=== PATIENT | male | born 1950 | race Caucasian/White ===

== ENCOUNTER 2018-12-07 22:37 | Inpatient (IN) | payer OTHER ==
[~2018-12-07] VITALS: Ht 172.7 cm; Wt 95.5 kg
--- NOTE | ~2018-12-07 | HC ---
[facility] [place] [address] CONSULTATION Name: PENNIE GRANT Room #: 216-P [facility] IN M.R.#: [id number] Admission: 12/08/18 ������������������ Attend Phys: Matt Walker MD Discharge: ������������������ Date of : 48 Report #: [id number] THIS REPORT FOR: //name// CC: Matt Wilkins DATE OF SERVICE: 12/08/2018 HISTORY OF PRESENT ILLNESS: This is a 68-year-old male patient who was discussed with the Emergency Room physician last night and I discussed the patient with the nurses this morning. This patient does not provide any reliable history. Nobody is here with the patient to give any appropriate history. This patient had a stroke in the past with right-sided weakness as well as speech difficulty. He became worst. It is not clear how much different he is from the baseline, but apparently he was worse. This patient is on Xarelto that is for his atrial fibrillation. He was hypertensive at one time. His rhythm has stabilized, but he had increased heart rate at one time. REVIEW OF SYSTEMS: Positive for prior stroke that did leave him with residual deficit on the right side as well as partial aphasia. Review of systems is also positive for atrial fibrillation and he is on chronic anticoagulation for his atrial fibrillation. That was all the 14-point review of system which I could get. PAST MEDICAL HISTORY: Positive for stroke. FAMILY HISTORY: Negative for early age stroke. SOCIAL HISTORY: Unavailable. PHYSICAL EXAMINATION: NEUROLOGIC: His examination is pretty limited. He is alert. He wakes up, but his speech is difficult to understand. That makes it very difficult to do further neurological examination on him. He is weak on the right side, but apparently that is old. I cannot carry out any sensory examination because this patient has aphasia and is not able to understand the instructions very well. There is no meningeal sign. I could not look at the fundus. He has a history of atrial fibrillation. He does not appear to be in any respiratory distress. VITAL SIGNS: Last blood pressure was 107/47 and temperature was 99.3. LABORATORY DATA: His white count is 12.7. His sodium is normal. His CT angiogram and CT were reviewed and that does not show any abnormality. IMPRESSION: The patient with prior cerebrovascular accident with residual weakness on the right side and aphasia, now presents with aggravation of his symptoms. He is hypotensive. That can aggravate the deficit or the patient may [facility] [address] [place] [address] CONSULTATION Name: PENNIE GRANT Room #: 216-P [facility] IN .R.#: [id number] Admission: 12/08/18 ������������������ Attend Phys: Matt Walker MD Discharge: ������������������ Date of : 48 Report #: [id number] have extended his stroke. Multiple things were considered in this patient. He is not a TPA candidate because he was on Xarelto. The last time he was seen well was 09:30 yesterday and he was also outside the window for that. He was considered for thrombectomy and we did a CT angiogram and no thrombus was found. Therefore, this patient is not a candidate for any intervention. I discussed that with the patient, but I am not sure how much he understands. We will try to locate the family. I talked to the nurses and told them to take him down for MRI whenever they can and whenever Cardiology and staff feels comfortable. We will see if we need to change anything, but in the meantime, the emphasis should be to increase the patient's blood pressure if we can. Time spent 50 minutes, majority counseling and coordinating. We will see the patient again after the MRI is done. ��������������������������������������������� ���������������������������������������� By: ��������������������������������������������� 1259 0035 Levi Winn MD /nt
[2018-12-07 22:40] VITALS: BP 128/71
[2018-12-07] MEDS ORDERED: ASPIR 8181 MG PO (22:42)
[2018-12-07] MEDS ORDERED: CARVEDILOL12.5 MG PO (22:43)
[2018-12-07] MEDS ORDERED: CALCIUM 600 +1 EAC1 PO (22:43)
[2018-12-07] MEDS ORDERED: CENTRUM SILVER1 EAC4 PO (22:43)
[2018-12-07] MEDS ORDERED: FLONASE 0.05%50 MCG NASAL (22:45)
[2018-12-07] MEDS ORDERED: NORCO 5-325 TA1 EACH PO (22:45)
[2018-12-07] MEDS ORDERED: LASIX 20 MG TAB20 MG PO (22:45)
[2018-12-07] MEDS ORDERED: FISH OIL 1,2001 EAC4 PO (22:45)
[2018-12-07] MEDS ORDERED: LISINOPRIL10 MG PO (22:46)
[2018-12-07] MEDS ORDERED: MYCOLOG TOP (22:46)
[2018-12-07] MEDS ORDERED: XARELTO20 MG PO (22:47)
[2018-12-07 22:59] LABS: POC CA IONIZED 3.6 mg/dL (4.5-5.3); POC HEMOGLOBIN 14.6 g/dL (14.0-18.0); POC POTASSIUM 5.2 mmol/L (3.5-5.1)
[2018-12-07 23:21] LABS: HEMATOCRIT 47.7 % (42.0-52.0); HEMOGLOBIN 16.3 gm/dL (14.0-18.0); MCH 32.3 pg (26.0-34.0); MCHC 34.2 g/dL (28.0-37.0); MCV 94.5 fL (80.0-100.0); PLATELET COUNT 146 thou/uL (150-400); RBC 5.04 mil/uL (4.50-6.00); RDW 14.4 % (10.5-14.5); WBC 13.9 thou/uL (4.0-11.0)
[2018-12-07 23:28] LABS: ANION GAP 12 mmol/L (7-16); BUN 22 mg/dL (7-18); CHLORIDE 101 mmol/L (98-107); CO2 25 mmol/L (21-32); CREATININE 1.5 mg/dL (0.7-1.3); GLUCOSE 281 mg/dL (74-106); SODIUM 138 mmol/L (136-145)
[2018-12-07 23:34] LABS: APTT 27.8 Seconds (24.5-32.8); INR 1.2; PROTIME 12.4 Seconds (9.3-11.4)
[2018-12-07 23:38] LABS: TROPONIN-I <0.06 ng/mL (<0.06)
[2018-12-07 23:55] LABS: ABSOLUTE NEUTROPHILS 12.1 thou/uL (1.4-8.2)
[2018-12-07 23:56] LABS: LARGE PLATELETS FEW; PLATELET ESTIMATE DECREASED; POLYCHROMASIA 1+
[2018-12-08] VITALS (28 sets, daily range): BP systolic 79–118; BP diastolic 22–71
[2018-12-08 00:05] LABS: URINE BILIRUBIN 1+ (Negative); URINE BLOOD 3+ (Negative); URINE CLARITY CLOUDY; URINE COLOR YELLOW; URINE GLUCOSE-RANDOM* 1+ (Negative); URINE KETONES TRACE (Negative); URINE LEUKOCYTES-REFLEX NEGATIVE (Negative); URINE NITRITE-REFLEX NEGATIVE (Negative); URINE PROTEIN (DIPSTICK) 1+ (Negative)
[2018-12-08 00:10] LABS: AMP/METHAMP Negative (Negative); BARBITURATES Negative (Negative); BENZODIAZEPINES Negative (Negative); COCAINE Negative (Negative); METHADONE Negative (Negative); OPIATES Negative (Negative); PCP Negative (Negative)
[2018-12-08 00:15] LABS: SQUAMOUS 0-3 Few /LPF (0-3); URINE RBC >20 Many /HPF (0-2); URINE WBC-REFLEX 0-5 Rare /HPF (0-5)
[2018-12-08 00:16] LABS: BACTERIA-REFLEX None Seen /HPF (None Seen); CASTS None Seen /LPF (None Seen); CRYSTALS None Seen /LPF (None Seen)
[2018-12-08 05:23] LABS: HEMATOCRIT 44.9 % (42.0-52.0); MCH 31.6 pg (26.0-34.0); MCHC 33.4 g/dL (28.0-37.0); MCV 94.7 fL (80.0-100.0); RBC 4.74 mil/uL (4.50-6.00); RDW 14.5 % (10.5-14.5); WBC 12.7 thou/uL (4.0-11.0)
[2018-12-08 05:28] LABS: CALCIUM 8.2 mg/dL (8.5-10.1); CREATININE 1.3 mg/dL (0.7-1.3); POTASSIUM 4.2 mmol/L (3.5-5.1)
--- NOTE | 2018-12-08 08:33 | NUR ---
RECIEVED PT FROM ER TO ICU 247. PT NIH 8. PREVIOUS RT SIDED WEAKNESS SISSY RT ARM.MOSTLY SLURRED SPEEACH, AND DECREASE RT ARM MOVMNT NOTED FOR RT ARM WEAKNESS. MONITOR SHOW AFIB 100-90. WILL DECREASE CARDIZEM RATE IMPROVED AND BP BORDERLINE. STARTED IV FLUIDS. INCONT OF URINE. REFUSED BLANDON. CONT PLAN OF CARE. UPDATED DR PRO THIS AM
--- NOTE | 2018-12-08 10:21 | 2DMMODE ---
[facility] [place] [address] 2 D/M-MODE ECHOCARDIOGRAM Name: PENNIE GRANT Room #: 247-P ADM IN M.R.#: [id number] ������������� Admission: 12/08/18 ������������� Attend Phys: Matt Walker MD Discharge: ��� ������������� ��� Date of : 48 Date of Service: 12/08/18 1021 �� Report #: [id number] �������� ��������������������������������������������[id number] THIS REPORT FOR: //name// APPROVED REPORT Study performed: 12/08/2018 08:10:01 EXAM: Comprehensive 2D, Doppler, and color-flow Echocardiogram Room #: [facility] Status: routine BSA: 2.20 HR: 85 bpm BP: 104/61 mmHg Rhythm: Atrial Fibrillation Other Information Study Quality: Fair Indications CVA, AFib RVR, Hx. HTN, HLD. Echo Enhancing Agent Indication: Rule out Shunt Agent(s) / Amount(s) Used: Agitated Saline 7 cc 2D Dimensions RVDd: 32.72 mm IVSd: 11.27 (7-11mm) LVOT Diam: 22.34 (18-24mm) LVDd: 44.15 mm PWd: 11.28 (7-11mm) Ascending Ao: 35.24 (22-36mm) LVDs: 31.59 (25-40mm) Aortic Root: 37.03 mm IVC: 29.00 mm Volumes Left Atrial Volume (Systole) Single Plane 4CH: 52.93 mL Single Plane 2CH: 55.02 mL LA ESV Index: 26.27 mL/m2 Aortic Valve AoV Peak Ryan.: 1.41 m/s AO Peak Gr.: 7.93 mmHg LVOT Max P.74 mmHg LVOT Max V: 1.19 m/s ADDIE Vmax: 3.31 cm2 Pulmonary Valve PV Peak Ryan.: 0.96 m/s PV Peak Gr.: 3.66 mmHg [facility] [place] [address] 2 D/M-MODE ECHOCARDIOGRAM Name: PENNIE GRANT Room #: 247-P [facility] IN M.R.#: [id number] ������������� Admission: 12/08/18 ������������� Attend Phys: Matt Walker MD Discharge: ��� ������������� ��� Date of : 48 Date of Service: 12/08/18 1021 �� Report #: [id number] �������� ��������������������������������������������[id number] Tricuspid Valve TR Peak Ryan.: 2.80 m/s RAP Estimate: 10.00 mmHg TR Peak Gr.: 31.36 mmHg PA Pressure: 41.00 mmHg Left Ventricle The left ventricle is normal size. There is normal left ventricular wall thickness. The left ventricular systolic function is normal. The left ventricular ejection fraction is within the normal range. LVEF is 55-60%. This study is not technically sufficient to allow evaluation of the LV diastolic function due to atrial fibrillation. Right Ventricle The right ventricle is normal size. The right ventricular systolic function is normal. Atria The left atrium size is normal. No shunting by contrast bubble injection. The right atrium size is normal. Aortic Valve The aortic valve is normal in structure. No aortic regurgitation is present. There is no aortic valvular stenosis. Mitral Valve The mitral valve is normal in structure. Mild mitral regurgitation. No evidence of mitral valve stenosis. Tricuspid Valve The tricuspid valve is normal in structure. Mild tricuspid regurgitation. Estimated PAP of 41 mmHg. Pulmonic Valve Pulmonic valve is not well visualized. There is no pulmonic valvular regurgitation seen. Great Vessels The aortic root is at upper limits of normal measuring 3.7 cm. The ascending aorta is normal in size. IVC is dilated and collapses <50% with inspiration. Pericardium There is no pericardial effusion. [facility] [address] [place] [address] 2 D/M-MODE ECHOCARDIOGRAM Name: PENNIE GRANT Room #: 247-P [facility] IN .R.#: [id number] ������������� Admission: 12/08/18 ������������� Attend Phys: Matt Walker MD Discharge: ��� ������������� ��� Date of : 48 Date of Service: 12/08/18 1021 �� Report #: [id number] �������� ��������������������������������������������[id number] <Conclusion> The left ventricle is normal size. LVEF is 55-60%. No shunting by contrast bubble injection. The aortic valve is normal in structure. The mitral valve is normal in structure. Mild mitral regurgitation. The tricuspid valve is normal in structure. Mild tricuspid regurgitation. Estimated PAP of 41 mmHg. Pulmonic valve is not well visualized. There is no pericardial effusion. ��������������������������������������������� <ELECTRONICALLY SIGNED> ���������������������������������������� By: Immanuel Raya MD ��������������������������������������������� 12/08/18 1021 1021 1021 Immanuel Raya MD /INF
--- NOTE | 2018-12-08 12:21 | NUR ---
Case opened to follow for dc planning needs. Pt is currently in ICU for r/o cva with MRI pending. Datapower Developer visited with the pt and his Gabby at bedside. They report that the pt has a previous cva in Jul 2017 and had acute rehab at with outpt therapy f/[place] [facility] [place]. The pt uses a cane and they have 2 steps to enter their home through the garage. Everything is on the main level. Pt's does the driving. PCP is Dr. Jose R Wilkins. The pt is incontinent of bladder and wears briefs at home. The pt's is his medical dpoa and a copy of the document is on the chart. Insurance is [employer] medicare plan and a copy of the card is on the front of the chart and forwarded to UR/admitting. Dc needs are uncertain at this time. PT/OT/ST evals in progress. They are open to acute rehab, snf, hh or outpt therapy options pending the care team recommendations. Note that [facility] is out of network should acute rehab be recommended. Will follow.
--- NOTE | 2018-12-08 14:17 | EKG ---
[address] [address] ELECTROCARDIOGRAM REPORT Name: PENNIE GRANT Room #: 247-P ADM IN M.R.#: [id number] ������������������ Admission: 12/08/18 ������������������ Attend Phys: Matt Walker MD Discharge: ������������������ Date of : 48 Report #: [id number] ����������������������������������������������������������������� [id number] THIS REPORT FOR: //name// [facility] ED Test Date: 2018-12-07 Test Time: 23:08:59 Pat Name: PENNIE GRANT Department: Room: 247 Gender: M Sea Captain: ene : 1950 Requested By: Yana Trujillo Order Number: [id number] MD: Rodger Sanchez Measurements Intervals [place] Rate: 134 P: [place]: QRS: -68 QRSD: 97 T: 85 QT: 312 QTc: 466 Interpretive Statements Atrial fibrillation Inferior infarct, old Poor R wave progression No previous ECG available for comparison Electronically Signed On 12-08-2018 14:16:59 CDT by Rodger Sanchez [email or web address] ��������������������������������������������� <ELECTRONICALLY SIGNED> ���������������������������������������� By: Rodger Sanchez MD, [facility] ��������������������������������������������� 12/08/18 1416 [id number] [id number] Rodger Sanchez MD, FACC /EPI
--- NOTE | 2018-12-08 18:27 | NUR ---
PT ALERT AND ORIENTED X4, ASSIST X1 TO CHAIR, USING GAIT BELT AND WALKER, PT HAS STIFF KNEES THEREFORE GIVES HIM A SHUFFING GAIT, UP TO CHAIR MOST OF DAY, TOLERATED MRI OF HEAD, DISCUSSED RESULTS WITH PT AND DR. QUIÑONEZ, ORDERS TO MOVE PT TO [facility]. WILL CONTINUE TO MONITOR.
[2018-12-09 04:47] LABS: CHOLESTEROL 75 mg/dL (<200); HDL CHOLESTEROL 22 mg/dL (>40); LDL CHOLESTEROL 39 mg/dL (<100); TC:HDL 3.4 Ratio (Not establshd); TRIGLYCERIDE 71 mg/dL (<150); VLDL 14 mg/dL (<40)
[2018-12-09 04:52] LABS: SERUM ASSESSMENT Slight Lipemia
[2018-12-09 05:06] VITALS: BP 111/63
[2018-12-09 07:21] VITALS: BP 132/60
--- NOTE | 2018-12-09 07:54 | NUR ---
ASSESSMENT CHARTED. STROKE RULED OUT AFTER PATIENT ARRIVED HERE WITH INCREASED WEAKNESS AND SLURRED SPEECH. BLOOD PRESSURE WAS TOO LOW TO PROFUSE THE BRAIN. PATIENT DENIES CHEST PAIN. MRI OF HEAD AND CT OF HEAD WERE NEGATIVE FOR INFARCTS.
[2018-12-09 10:50] VITALS: BP 130/79
--- NOTE | 2018-12-09 13:59 | NUR ---
Pt now on CCU. Stroke workup negative. Low blood pressure and bp medications appear to be the main issue. Therapy working with the pt. HH recommended at dc. Pt has HMO plan. Will discuss options with the pt/his spouse. Executive Coach spoke with them this morning. Pt's anxious about being out of network. UR working with the insurance plan d/t emergency admission. The pt is feeling better and feels he is close to his baseline. Dc home soon with HH.
--- NOTE | 2018-12-09 14:09 | NUR ---
PATIENT CARE ASSUMED, ASSESSMENT CHARTED, VSS, SALINE LOCK L AC, NO COMPLAINTS OF PAIN, PATIENT DISCHARGED BY WHEELCHAIR TO HOME ACCOMPANIED BY SPOUSE. DISCHARGE ORDERS AND PRESCRIPTIONS GIVEN, PATIENT STATES UNDERSTANDING.
[2018-12-09 15:08] VITALS: BP 126/72
--- NOTE | 2018-12-09 17:23 | NUR ---
PATIENT ALERT AND ORIENTED, VSS, NS 125 IN R UPPER ARM, AMBULATED IN [place] WITH PT, NO COMPLAINTS OF PAIN, AT BEDSIDE, WILL CONTINUE TO MONITOR.
[2018-12-09 19:27] VITALS: BP 129/70
[2018-12-10 03:01] VITALS: BP 141/88
[2018-12-10 07:59] VITALS: BP 128/75
--- NOTE | 2018-12-10 15:19 | NUR ---
here this morning and agreeable with hh f/u per Luis at [place]. Dc anticipated tomorrow. [facility] updated. Nursing to call their cisco consultant nurse and fax dc summary and instructions. and fax [phone].
[2018-12-10 15:20] VITALS: BP 128/75
[2018-12-10 16:30] VITALS: BP 129/60
--- NOTE | 2018-12-10 17:06 | NUR ---
ASSESSMENT CHRATED - MEDS PER OCT - NO CO'S OF PAIN OR NAUSEA - HAO DIET AND FLUIDS. UP IN THE CHAIR FOR THE DAY - SEEN BY PHYS AND OCC THERAPY TODAY. PT WITH TELE MONITOR D/C'S TODAY. ACCUCHECKS CHARTED - IV FLUIDS D/C. NO CO'S AT THE PRESENT TIME.
[2018-12-10 20:57] VITALS: BP 117/55
[2018-12-11 04:00] VITALS: BP 195/68
--- NOTE | 2018-12-11 05:34 | NUR ---
ASSUMED PT CARE AT 1900 WITH BEDSIDE REPORT TAKEN. PT IS ALERT, ORIENTED TO PLACE AND NAME, AND SITTING IN CHAIR. NO SIGN OF DISTRESS NOTED IN PT. ASSESSMENT COMPLETED AND CHARTED. PT IS STABLE AND DENIES ANY NEEDS AT THIS TIME. SCHEDULED MEDS ADMINISTERED TO PT. DENIES ANY FURTHER NEEDS AT THIS TIME.
[2018-12-11 08:00] VITALS: BP 141/61
[2018-12-11] MEDS ORDERED: ATORVASTATIN CA10 MG PO (11:43)
[2018-12-11 12:30] VITALS: BP 128/75
[2018-12-11 12:41] VITALS: BP 109/65
--- NOTE | 2018-12-11 13:45 | NUR ---
ASSESSMENT CHARTED - MEDS PER MILDRED - HAO DIET AND FLUIDS - NO CO'S OF QI OR NASUEA. UP IN ROOM WITH THE USE OF A WALKER. HOME THIS AFTERNOON- INSTRUCTION RE HOME MEDS/ CARE AND FOLLOW UP GIVEN TO - STATED UNDERSTANDING OF INSTRUCTION GIVEN. LEFT UNIT VIA WHEEL CHAIR - HOME VIA PVT VEHICLE ACCOMPANIED BY . CHERYL CASTILLO SERVICED CALLED AND INFORMED OF D/C. DISCHARGE SUMMARY AND INSTRUCTIONS FAXED TO [facility]. NO CO'S AT TIME OF D/C.
== END 2018-12-11 13:25 | disposition home health service (06) | DRG 69 ==
LOC: ER 22:37 → EROBS 12-08 01:23 → ICU 12-08 01:23 → 2N 12-08 01:23 → ICU 12-08 02:14 → 2N 12-08 21:51
PROVIDERS: Nurse Practitioner Family; Student in an Organized Health Care Education/Training Program; ADMIT Hospitalist
DX: G45.9 Transient cerebral ischemic attack, unspecified (principal); I69.354 Hemiplegia and hemiparesis following cerebral infarction affecting left non-dominant side; I95.9 Hypotension, unspecified; E78.5 Hyperlipidemia, unspecified; I48.2 Chronic atrial fibrillation; I10 Essential (primary) hypertension; Z79.01 Long term (current) use of anticoagulants; Z79.82 Long term (current) use of aspirin; Z79.899 Other long term (current) drug therapy
CPT/HCPCS: 10081